=== PATIENT | female | born 1965 | race Caucasian/White ===

== ENCOUNTER 2021-05-18 20:26 | Emergency (ER) | payer BC ==
[~2021-05-18] VITALS: Ht 175.3 cm; Wt 70.5 kg
[2021-05-18] MEDS ORDERED: glucagon, human recombinant 1mg kit IM ONE (22:40)
[2021-05-19] MEDS ORDERED: glucagon, human recombinant 1mg kit IM ONE (00:40)
[2021-05-19] MEDS ORDERED: LORazepam 2 mg/ml vial IM ONE (01:20)
--- NOTE | 2021-05-19 02:10 | NUR ---
PT STATED HER BLOCKAGE HAS CLEARED, THAT SHE IS ABLE TO SWALLOW NOW WITHOUT DIFFICULTY. MD NOTIFIED.
[2021-05-19 02:34] VITALS: BP 128/96
== END 2021-05-19 02:25 | disposition home or self-care (01) ==
LOC: ER 20:27
DX: T17.228A Food in pharynx causing other injury, initial encounter (principal); E06.9 Thyroiditis, unspecified; X58.XXXA Exposure to other specified factors, initial encounter; Y93.89 Activity, other specified; Y92.89 Other specified places as the place of occurrence of the external cause; Y99.8 Other external cause status
CPT/HCPCS: 71045; 96372; 99283; J1610